=== PATIENT | male | born 1980 | race Two or more races ===

== ENCOUNTER 2019-09-12 22:09 | Emergency (ER) | payer SELFPAY ==
[~2019-09-12] VITALS: Ht 177.8 cm; Wt 72.6 kg
[2019-09-12 22:20] VITALS: BP 142/85
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
--- NOTE | 2019-09-12 22:34 | NUR ---
ED Nurse Note: ERMD at bedside
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
[2019-09-12] MEDS ORDERED: HYDROcodone/Acetamin 5/325 tab ORAL ONE (22:45)
--- NOTE | 2019-09-12 22:48 | NUR ---
ED Nurse Note: Pt taken to CT in stable condition, vss no ss of distress noted.
--- NOTE | 2019-09-12 23:00 | NUR ---
ED Nurse Note: Pt returned from CT in stable condition. vss no ss of distress noted
--- NOTE | 2019-09-12 23:00 | NUR ---
ED Nurse Note: xray at bedside
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
[2019-09-12] MEDS ORDERED: IBUPROFEN600 M1 ORAL (23:24)
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
--- NOTE | 2019-09-12 23:30 | NUR ---
ED Nurse Note: ERMD at bedside for suture of left eye lid. PT tolerated well no ss of distress noted.
[2019-09-12 23:40] VITALS: BP 139/82
--- NOTE | 2019-09-12 23:40 | NUR ---
ER DISCHARGE NOTE: Patient is cleared to be discharged home per ERMD, pt is aox4, 98% on room air, with stable vital signs. pt was given dc and prescription instructions, pt was able to verbalize understanding, pt id band and iv site removed without complications. pt is able to ambulate with steady gait. pt took all belongings.
== END 2019-09-12 23:40 | disposition home or self-care (01) ==
LOC: EDBD 22:09 → EMR 22:46
DX: S01.81XA Laceration without foreign body of other part of head, initial encounter (principal); S80.12XA Contusion of left lower leg, initial encounter; S80.11XA Contusion of right lower leg, initial encounter; S09.90XA Unspecified injury of head, initial encounter; V03.90XA Pedestrian on foot injured in collision with car, pick-up truck or van, unspecified whether traffic or nontraffic accident, initial encounter; Y92.410 Unspecified street and highway as the place of occurrence of the external cause
CPT/HCPCS: 70450; 99284